=== PATIENT | female | born 1970 | race Caucasian/White ===

== ENCOUNTER → 2017-09-28 | Day surgery (SDC) | payer MEDICAID ==
[~2017-09-28] VITALS: Ht 157.5 cm; Wt 120.2 kg
[2017-09-28] VITALS (10 sets, daily range): BP systolic 94–148; BP diastolic 59–80
[~2017-09-28] MED LIST: ADV50100 IH; ALBU2.5V10 NEB; ATOR20TA PO; BECL7.3A INH; BUSP7.5T4 PO; DOCU100C40 PO; DULO60CA64 PO; GABA-532 PO; HYDROcodone/acetaminophen 10/325mg tab PO PRN; HYDROcodone/acetaminophen 5mg/325mg tablet PO PRN; HYDROmorphone 1 mg/ml syringe IV PRN; IBUP-864 PO; KEN0.1O TP; LIDOcaine 1% 30ml preserv. free vial ONE; LORazepam 0.5 MG tablet PO PRN; MESSAGE TO PHARMACY PO ONE; METF500T6 PO; OXAZEpam 15mg capsule PO PRN; PER10325T PO; SITA25TA3 PO; acetaminophen 325mg tablet PO PRN; dextrose 50%-water 50ml dispensing syringe IV PRN; dextrose ORAL solution 15 GM/59 ML bottle PO PRN; diphenhydrAMINE 25mg capsule PO PRN; fentaNYL/PF 50MCG/1 ML 2ML syringe ONE; glucagon, human recombinant 1mg kit SUBCUT PRN; heparin 1,000 UNITS/NS 500ml 500 ML ONE; insulin Lispro (HumaLOG) vial - multi-dose SQ SCH; insulin glargine (Lantus) pen - multi-dose SQ SCH; iohexol 350 MG/ML 50ML vial IV ONE; iohexol 350MG/ML 100ml bottle IV ONE; midazolam 2 mg/2 ml injection ONE; nitroGLYCERIN 0.4mg SUBLingual tab SL PRN; normal saline 1000ml 1,000 ML IV SCH; ondansetron/PF 4mg/2ml inj IV PRN; proCHLORperazine 10 MG/2 ml inj IV PRN; proCHLORperazine 10 MG/2 ml inj ONE
== END | disposition home or self-care (01) ==
LOC: SSTAY O 08:55
PROVIDERS: ATTEND Internal Medicine Cardiovascular Disease
DX: I25.118 Atherosclerotic heart disease of native coronary artery with other forms of angina pectoris (principal); E78.5 Hyperlipidemia, unspecified; E11.9 Type 2 diabetes mellitus without complications; J45.998 Other asthma; G89.4 Chronic pain syndrome; F32.9 Major depressive disorder, single episode, unspecified; F41.1 Generalized anxiety disorder; J44.9 Chronic obstructive pulmonary disease, unspecified; G47.33 Obstructive sleep apnea (adult) (pediatric); M79.7 Fibromyalgia; Z72.89 Other problems related to lifestyle; Z79.1 Long term (current) use of non-steroidal anti-inflammatories (NSAID); Z79.891 Long term (current) use of opiate analgesic; Z79.84 Long term (current) use of oral hypoglycemic drugs; Z98.890 Other specified postprocedural states; Z79.899 Other long term (current) drug therapy
CPT/HCPCS: 82948; 93005; 93458; 99152; 99153; A6257; C1760; C1769; J0780; J1644; J2250; J3010; J3490; J7030; Q0163; Q9967; A4620; J1815